=== PATIENT | female | born 1980 | race Caucasian/White ===

== ENCOUNTER → 2021-04-14 | Outpatient (CLI) | payer OTHER ==
--- NOTE | 2021-04-15 11:34 | RAD ---
EXAMINATION: US BREAST LTD LT, MG DIGITAL BILAT DIAGNOSTIC MAMMO WITH BRYCE History: Left breast lump and thickening in the left retroareolar region Comparison: None. Baseline exam. Technique: Bilateral digital diagnostic mammogram views were obtained. CAD was utilized. 3-D tomosyn thesis images were acquired. Focused ultrasound of the retroareolar left breast in the area of concer n was also performed. FINDINGS: MAMMOGRAM: Breast Tissue Density C : The breasts are heterogeneously dense, which may obscure small masses. An asymmetry in the retroareolar left breast slightly lateral to the nipple on CC view is less conspi cuous with spot compression and has no correlation on MLO view. There are no dominant masses, suspici ous microcalcifications, or architectural distortion. ULTRASOUND: No mass, cyst, or dilated ducts in the retroareolar region. There is normal fibroglandula r tissue. IMPRESSION: No mammographic evidence of malignancy. Recommend routine annual mammogram. BI-RADS category 1: Negative. The images were reviewed with computer aided detection. Patient information is entered into the reminder system with a target due date for the next screening mammogram. Mammography is the most sensitive method for finding small breast cancers, but it does not detect the m all and is not a substitute for careful clinical examination. A negative mammogram does not negate a clinically suspicious finding and should not result in delay in biopsying a clinically suspicious a bnormality. "Our facility is accredited by the [employer] Mammography Program." Electronically signed by: Britta Stearns MD (04/15/2021 11:32 AM) [id number]
== END ==
LOC: MAMMO 12:44
PROVIDERS: ATTEND Advanced Practice Midwife
DX: R92.2 Inconclusive mammogram (principal); N63.20 Unspecified lump in the left breast, unspecified quadrant
CPT/HCPCS: 76642; 77066; G0279; 77062